=== PATIENT | female | born 2000 | race Caucasian/White ===

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

== ENCOUNTER 2019-05-05 14:31 | Emergency (ER) | payer MEDICAID ==
[~2019-05-05] VITALS: Ht 167.6 cm; Wt 100.7 kg
[2019-05-05 14:37] VITALS: Ht 167.6 cm; Wt 100.7 kg
[2019-05-05 15:56] VITALS: BP 123/89
== END 2019-05-05 16:22 | disposition home or self-care (01) ==
LOC: ED 14:31
DX: J02.9 Acute pharyngitis, unspecified (principal); M25.512 Pain in left shoulder; Z88.1 Allergy status to other antibiotic agents
CPT/HCPCS: J0696; J1100

== ENCOUNTER 2019-10-11 06:59 | Emergency (ER) | payer MEDICAID ==
[~2019-10-11] VITALS: Ht 167.6 cm; Wt 90.7 kg
[2019-10-11 07:37] VITALS: Ht 167.6 cm; Wt 90.7 kg
[2019-10-11 07:50] LABS: BASOPHIL % 0.4 % (0-2); PLATELET COUNT 279 x10^3mcL (130-400); RED CELL DISTRIBUTION WIDTH 13.9 % (11.5-14.5)
[2019-10-11 08:07] LABS: CALCIUM 9.1 mg/dL (8.5-10.1); CHLORIDE SERUM 103 mmol/L (98-107); CREATININE SERUM 0.6 mg/dL (0.6-1.0); GFR1 > 60 mL/min; GLUCOSE SERUM 101 mg/dL (74-106); POTASSIUM SERUM 3.9 mmol/L (3.5-5.1); SODIUM SERUM 137 mmol/L (136-145)
[2019-10-11 08:13] LABS: ALBUMIN 3.5 g/dL (3.4-5.0); ALKALINE PHOSPHATASE 97 U/L (46-116); ALT/SGPT 15 U/L (14-59); AST/SGOT 12 U/L (15-37); BILIRUBIN TOTAL 0.22 mg/dL (0.20-1.00); TOTAL PROTEIN, SERUM 7.6 g/dL (6.4-8.2)
[2019-10-11 08:19] LABS: AMPHETAMINE QUAL UR NONE DETECTED (See below)
[2019-10-11 10:55] VITALS: BP 116/86
== END 2019-10-11 10:55 | disposition home or self-care (01) ==
LOC: ED 06:59
PROVIDERS: Emergency Medicine
DX: R56.9 Unspecified convulsions (principal); R51 Headache; Z86.011 Personal history of benign neoplasm of the brain; Z88.1 Allergy status to other antibiotic agents; Z88.2 Allergy status to sulfonamides
CPT/HCPCS: G0480

== ENCOUNTER 2020-05-06 01:37 | Emergency (ER) | payer MEDICAID ==
[~2020-05-06] VITALS: Ht 167.6 cm; Wt 88.9 kg
[2020-05-06 01:41] VITALS: Ht 167.6 cm; Wt 88.9 kg
[2020-05-06 03:09] VITALS: BP 120/64
== END 2020-05-06 03:09 | disposition home or self-care (01) ==
LOC: ED 01:37
DX: G40.909 Epilepsy, unspecified, not intractable, without status epilepticus (principal); Z88.1 Allergy status to other antibiotic agents; Z88.2 Allergy status to sulfonamides